=== PATIENT | female | born 1950 | race Caucasian/White ===

== ENCOUNTER 2018-08-08 21:53 | Emergency (ER) | payer MEDICARE ==
[~2018-08-08] VITALS: Ht 165.1 cm; Wt 93.2 kg
[2018-08-08 22:25] VITALS: BP 120/84
[2018-08-08] MEDS ORDERED: CALCIUM PO (22:43)
[2018-08-08] MEDS ORDERED: ASPI-515 PO (22:43)
[2018-08-08] MEDS ORDERED: CYAN250013 PO (22:43)
[2018-08-08] MEDS ORDERED: LEVO25TA4 PO (22:43)
[2018-08-08] MEDS ORDERED: MAGN400T26 PO (22:43)
== END 2018-08-08 23:21 | disposition home or self-care (01) ==
LOC: ED 22:50
DX: N81.10 Cystocele, unspecified (principal); E03.9 Hypothyroidism, unspecified; Z90.49 Acquired absence of other specified parts of digestive tract
CPT/HCPCS: 99283